=== PATIENT | female | born 1985 | race Caucasian/White ===

== ENCOUNTER 2025-11-17 07:25 | Emergency (ER) | payer OTHER ==
[~2025-11-17] VITALS: Ht 210.8 cm; Wt 63.5 kg
[~2025-11-17 07:25] MED LIST: AMOX500 PO; ASPI325EC; Ativan1 MG PO; DIPH50
[2025-11-17 11:24] LABS: U Amphetamine Screen Not Detected; U Barbiturate Screen Not Detected; U Benzodiazapine Screen DETECTED; U Buprenorphine Screen Not Detected; U Cannabinoids Screen Not Detected; U Cocaine Screen Not Detected; U Methadone Screen Not Detected; U Methamphetamine Screen Not Detected; U Opiates Screen Not Detected; U Oxycodone Screen Not Detected; U Phencyclidine Screen Not Detected
== END 2025-11-17 12:05 | disposition home or self-care (01) ==
LOC: ER 07:25
PROVIDERS: Student in an Organized Health Care Education/Training Program
DX: F41.9 Anxiety disorder, unspecified (principal); R44.0 Auditory hallucinations; R44.1 Visual hallucinations
CPT/HCPCS: 99285; A9270